=== PATIENT | female | born 1955 | race Caucasian/White ===

== ENCOUNTER → 2018-10-11 07:03 | Day surgery (SDC) | payer OTHER ==
--- NOTE | 2018-09-30 14:22 | HP ---
CC: Dr. Tate; Dr. Fadia Rice * ADMISSION HISTORY AND PHYSICAL: DATE OF ADMISSION: 10/11/18. ATTENDING SURGEON: Dr. Marissa Paz.* (DICTATED BY TUTU DIAS) CHIEF COMPLAINT: Microcalcifications, left breast. HISTORY OF PRESENT ILLNESS: This is a 62-year-old generally healthy female who had not noted any changes in either breast and specifically denies skin changes or nipple discharge, who underwent screening mammogram on 08/05/18. This showed a pleomorphic cluster of microcalcifications in the left breast at the 12 o'clock position located 3 cm posterior to the nipple. Biopsy was recommended and she was set up for a stereotactic biopsy. However, this was found not to be possible and she was referred for consideration of surgical biopsy. The patient has had a prior right breast biopsy for microcalcifications in 2004. She has a family history of breast cancer in her mother, who was diagnosed at age 38 and at age 42 from her disease. There is also a question of a maternal cousin who had undergone bilateral mastectomy and reconstruction, though patient is not aware of the details. The patient was seen by Dr. Rice for consultation and also seen in the office by Dr. Paz on 09/11/18. Exam at that time showed no palpable lumps in either breast and no palpable lymphadenopathy. See also chart note for the remainder of her last menstrual history. Dr. Paz has discussed with her the indications for surgery, the risks, benefits, and alternatives and the patient would like to proceed as scheduled with excisional biopsy of the left breast microcalcifications following needle localization. PAST MEDICAL HISTORY: Anxiety and depression, asthma, allergic rhinitis, mild leukopenia (chronic; evaluated by Dr. Rice), mild glaucoma. PAST SURGICAL HISTORY: Include left shoulder surgery x2, fusion of C5-6 with cadaver bone graft, repair of an umbilical hernia with subsequent recurrence, right cataract extraction and lens implant. No reported surgical or anesthesia problems. CURRENT MEDICATIONS: 1. Citalopram 40 mg once daily. 2. Fluticasone nasal spray p.r.n. allergies. 3. Imitrex 100 mg p.r.n. migraines (has not required anytime recently). 4. Advair 100-50, 1 puff b.i.d. 5. Albuterol MDI 2 puffs q.4 h. p.r.n. (primarily uses prior to exercise). 6. Latanoprost 0.005% 1 drop left eye once every couple of weeks. 7. Restasis 0.05% 1 drop each eye once daily. 8. Pataday eye drops p.r.n. for allergies. ALLERGIES: None known. FAMILY HISTORY: Negative for anesthesia problems, bleeding, or clotting disorders and is positive for breast cancer as noted above. No known family history of ovarian cancer. SOCIAL HISTORY: The patient is single. 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 She denies use of tobacco. Drinks on average 5 drinks per week and denies any other recreational drug use. REVIEW OF SYSTEMS: General: No recent constitutional symptoms or acute illnesses. Dermatologic: No problems reported. HEENT: No problems reported. Mild glaucoma. Cardiovascular: No chest pain, palpitations, history of hypertension. Respiratory: No recent changes in her baseline, primarily exercise-induced asthma. GI: No problems reported. Colonoscopy done within the last couple of years and normal by her report. : No problems reported. 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 See also per HPI. Endocrine: No diabetes or thyroid dysfunction. Neuropsych: History of anxiety and depression. History of migraine headaches though with improvement after adapting a gluten- free diet. PHYSICAL EXAMINATION GENERAL: Well-nourished, well-developed female, in no acute distress. VITAL SIGNS: Height 67 inches, weight 127 pounds. Temperature 98.5, blood pressure 110/70, pulse 66, respirations 16. HEENT: Pupils are equal and round, reactive. EOMs intact. No conjunctival pallor. Oropharynx: Teeth in good repair. No intraoral lesions. NECK: No lymphadenopathy, thyromegaly, or masses. LUNGS: Clear to auscultation. No rales or wheezes. HEART: Regular rate and rhythm. No murmur noted. BREASTS: As above per Dr. Paz's exam, not repeated today. There is apparently a scar in the right breast from her prior core biopsy. ABDOMEN: Soft, nontender to palpation. There is a small lump that is reducible at the umbilicus consistent with recurrent umbilical hernia. It is nontender. No palpable masses or organomegaly. GENITALIA/RECTAL: Not done. BACK: No spinous process or CVA tenderness. EXTREMITIES: No edema. NEUROLOGIC: Grossly intact. SKIN: Warm and dry. No suspicious rashes or lesions noted. IMPRESSION: Microcalcifications, left breast. PLAN: Excision of microcalcifications, left breast (after needle localization). TUTU DIAS [id number]/[facility] #: [id number] [facility] HOSPITALElijah
[~2018-10-11 07:03] MED LIST: Acetaminophen IV 1GM/100ML * 1,000 MG/100 ML VIAL IVPB ONE; Buffered Lidocaine 1% SYRIN* 1 ML/SYRINGE INTRADERM ONE; Bupivacaine 0.5% W/EPI SDV* 30 ML VIAL ONE; Bupivacaine 0.5%* 50 ML VIAL ONE; Dexamethasone IV* 4 MG/ML 1 ML (4 MG) IV SLOW PU ONE; Dexamethasone IV* 4 MG/ML 1 ML (4 MG) ONE; DiMENhydriNATE IV* 50 MG/ML VIAL IV PUSH PRN; Famotidine IV* 10 MG/ML 2 ML (20 mg) IV ONE; Famotidine IV* 10 MG/ML 2 ML (20 mg) ONE; HYDROcodone/ACETAMIN 5-325 MG* 1 TAB PO PRN; KETAMINE HCL* 50 MG/ML 10 ML VIAL ONE; Lactated Ringers 1000 ML Bag* 1,000 ML IV SCH; Lidocaine 1% INJ* 10 MG/ML 30 ML SDV ONE; Lidocaine 2% PF * 5 ML VIAL ONE; Lidocaine 2.5%/Prilocain 2.5%* 5 GM TUBE ONE; Midazolam* 1 MG/ML 5 ML VIAL (5 MG) ONE; Naloxone* 0.4 MG/ML 1 ML VIAL IV PRN; Ondansetron INJ* 2 MG/ML VIAL ONE; Phenylephrine 40 MCG/ML SYRINGE ONE; Propofol* 10 MG/ML 20 ML BTL ONE; ceFAZolin 2 GM in NS PREMIX(*) 2 GM/100 ML BAG IVPB ONE; fentaNYL* 50 MCG/ML 2 ML VIAL (100 MCG VIAL) ONE
--- NOTE | 2018-10-11 11:46 | BRIEFOPN ---
Brief Operative Note - Surgery Procedures: Procedures BUNIONECT/SFT/OSTEOTOMY (03/04/08) CLOSURE SKIN & SUBCUTANEOUS NEC (11/09/13) PER NERVE ADHESIOLYS NEC (07/14/03) SOFT TISSUE INJECT NEC (03/01/13) SPINAL TAP (10/03/12) TETANUS ANTITOXIN ADMINI (11/09/13) 10/11/18 Op Note Pre-op dx: left breast microcalcifications Post-op dx: same Procedure: needle localization excision of left breast microcalcifications. Surgeon: Jackson Asst: none Anesth: local-MAC EBL: 5 cc SCDs on during surgery Abx: given pre-op Complications: none Pt. tolerated procedure well and was transferred to in a stable condition. CLFoster
[2018-10-11 12:07] VITALS: BP 118/72
--- NOTE | 2018-10-11 12:21 | OP ---
CC: Dr. Fink Bebeto * DATE OF OPERATION: 10/11/18 - [facility] DATE OF : 55 SURGEON: Marissa Paz MD. CONSTRUCTION AREA MANAGER: There was no social research assistant for this case. PRE-OP DIAGNOSIS: Left breast microcalcifications. POST-OP DIAGNOSIS: Left breast microcalcifications. OPERATIVE PROCEDURE: Needle localization and excision of left breast microcalcifications. DESCRIPTION OF PROCEDURE: The patient is a 62-year-old woman with recently identified microcalcifications that were not amenable to stereotactic biopsy. Plans were therefore made for surgical intervention. On the morning of surgery , she underwent needle localization without difficulty and was then brought to the operating room. She was placed on the OR table in supine position and given an IV sedation. The left breast was prepped and draped in the usual sterile fashion taking care not to dislodge the localizing wires. After infiltrating with local anesthetic, a curvilinear elliptical incision encompassing the wire was made. Subcutaneous tissues were then divided with electrocautery to excise a mass of tissue from around the tip of the wire. Once the specimen was out, it was marked in the usual fashion and handed off. Hemostasis was achieved with electrocautery. Once this appeared adequate, the wound was irrigated with saline. Clips were placed in the cavity to aissatou its confines and then closure was accomplished. The report came back from Radiology that this specimen contains the abnormality. Closure was accomplished with 3-0 Vicryl in the subcutaneous layer and the skin was closed with 5-0 Vicryl in a subcuticular fashion. Steri-Strips and a dry sterile dressing were applied. All sponge and instrument counts were correct. The patient tolerated the procedure well and was transferred to Recovery in a stable condition. [id number]/[facility] #: [id number] [facility]
== END | disposition home or self-care (01) ==
LOC: SDS 07:03
PROVIDERS: ATTEND Surgery
DX: D05.12 Intraductal carcinoma in situ of left breast (principal); Z80.3 Family history of malignant neoplasm of breast; F41.8 Other specified anxiety disorders; J45.909 Unspecified asthma, uncomplicated; D72.819 Decreased white blood cell count, unspecified
CPT/HCPCS: 88307; 88360; A9270-GY; J0690; J1100; J2250; J2405; J2704; J3010; J3490